=== PATIENT | female | born 1970 | race Caucasian/White ===

== ENCOUNTER → 2016-09-19 | Outpatient (CLI) | payer BC ==
[~2016-09-19] MED LIST: ACET-1311 PO; ALLGUNK PO; CALC600T14 PO; FISHOIL PO; IBUP-1050 PO; PRENTAB26 PO; [UNRECOGNIZED DRUG - CODE] PO
--- NOTE | 2016-09-19 08:28 | DIAGNOSTIC IMAGING REPORT ---
Ultrasound left finger LEFT EXTREMITY NONVASCULAR LIMITED CLINICAL HISTORY: Sporotrichosis, lt 2ND FINGER pain. Edema. TECHNIQUE: Ultrasound COMPARISON STUDY: None FINDINGS: At the site of clinically palpable nodularity at the interphalangeal joint level, there is a potential linear foreign body.. This is surrounded by a rind of granulation and/or edematous type tissue measuring approximately 9 x 3 mm. Linear foreign body is 3 mm maximum linear dimension. IMPRESSION: At the site of clinically palpable nodularity is a 3 mm linear foreign body surrounded by a rind of granulation and/or edematous type tissue. Electronically signed by: Gordon Perez M.D. 09/19/2016 8:27 AM Dictated Date/Time: 09/19/2016 8:19 AM
== END | disposition home or self-care (01) ==
LOC: C.ULTR 07:54
PROVIDERS: ATTEND Family Medicine
DX: B42.9 Sporotrichosis, unspecified (principal)

== ENCOUNTER → 2016-09-21 | Outpatient (CLI) | payer BC ==
--- NOTE | 2016-10-05 12:47 | CODING QUERY NO DIAGNOSIS ---
TREATMENT RENDERED WITHOUT A DIAGNOSIS To promote full compliance with coding requirements relating to patient care, physician participation is requested in all cases of residential designer uncertainty. Please assist us with providing a diagnosis/symptom for the test(s) below: A diagnosis/symptom was not documented on your Order. A valid diagnosis/symptom is required to bill all insurances. Please remember that we are unable to code a diagnosis of rule out, probable, possible, questionable, or suspected. Tests that require a diagnosis: * AERO/ANAE CULTURE & GRAM STAIN LEFT INDEX FINGER DIAGNOSIS: Provider Signature: Date: Thank you Kimberly Gandara [employer] Once completed, please kindly fax back to [phone] For questions please call [phone]
== END | disposition home or self-care (01) ==
LOC: C.LABSPEC 17:21
PROVIDERS: ATTEND Orthopaedic Surgery
DX: S60.459A Superficial foreign body of unspecified finger, initial encounter (principal); X58.XXXA Exposure to other specified factors, initial encounter

== ENCOUNTER → 2016-09-28 | Outpatient (CLI) | payer BC | END | disposition home or self-care (01) | LOC: C.PAPS 07:57 | PROVIDERS: ATTEND Obstetrics & Gynecology | DX: Z01.419 Encounter for gynecological examination (general) (routine) without abnormal findings (principal) ==

== ENCOUNTER → 2016-10-10 | Outpatient (CLI) | payer BC ==
--- NOTE | 2016-10-10 12:58 | MAMMOGRAPHY REPORT ---
BILATERAL DIGITAL SCREENING MAMMOGRAM TOMOSYNTHESIS WITH CAD: 10/10/2016 CLINICAL HISTORY: Routine screening. Patient has no complaints. TECHNIQUE: Breast tomosynthesis in addition to standard 2D mammography was performed. Current study was also evaluated with a Computer Aided Detection (CAD) system. COMPARISON: Comparison is made to exams dated: 09/24/2014 mammogram, 08/27/2013 mammogram, 01/26/2011 ma mmogram - [facility] [address], 12/21/2008, and 12/16/2008. BREAST COMPOSITION: The tissue of both breasts is extremely dense, which lowers the sensitivity of mammography. FINDINGS: No suspicious masses, calcifications, or areas of architectural distortion are noted in e ither breast. There has been no significant interval change compared to prior exams. IMPRESSION: ACR BI-RADS CATEGORY 1: NEGATIVE There is no mammographic evidence of malignancy. A 1 year screening mammogram is recommended. The p atient will receive written notification of the results. Approximately 10% of breast cancers are not detected with mammography. A negative mammographic repor t should not delay biopsy if a clinically suggestive mass is present. Elaina Stroud M.D. /:10/10/2016 08:21:39 [employer]: Carlota BRODY(R)(M), [facility] [address] letter sent: Normal 1/2 BI-RADS Code: ACR BI-RADS Category 1: Negative
== END | disposition home or self-care (01) ==
LOC: C.MAMM 08:01
PROVIDERS: ATTEND Obstetrics & Gynecology
DX: Z12.31 Encounter for screening mammogram for malignant neoplasm of breast (principal)

== ENCOUNTER → 2017-10-01 | Outpatient (CLI) | payer OTHER | END | disposition home or self-care (01) | LOC: C.PATHSPEC 17:59 | PROVIDERS: ATTEND Physician Assistant | DX: D23.5 Other benign neoplasm of skin of trunk (principal); L82.1 Other seborrheic keratosis ==